=== PATIENT | female | born 1985 | race Caucasian/White ===

== ENCOUNTER 2020-06-15 04:21 | Day surgery (SDC) | payer OTHER ==
[2020-06-15] MEDS ORDERED: VANCOMYCIN 1,000 MG in DEXTROSE 5%-WATER - 250 ML IVPB ONE (06:59)
[2020-06-15] MEDS ORDERED: CEFAZOLIN 2 GM in DEXTROSE 5%-WATER - 100 ML IVPB ONE (06:59)
[2020-06-15] MEDS ORDERED: HEPARIN NA (PORCINE) 5,000 UNITS/ML 1ML VIAL ONE (07:18)
[2020-06-15] MEDS ORDERED: THROMBIN (BOVINE) 20,000 UNIT VIAL TP ONE (07:18)
[2020-06-15] MEDS ORDERED: fentaNYL CITRATE 250 MCG/5 ML VIAL ONE (07:24)
[2020-06-15] MEDS ORDERED: MIDAZOLAM HCL 2 MG/2 ML SINGLE DOSE VIAL ONE (07:24)
[2020-06-15] MEDS ORDERED: LIDOCAINE HCL/PF 2% SDV 5ML VIAL ONE (07:24)
[2020-06-15] MEDS ORDERED: DEXAMETHASONE SOD PHOSPHATE 4 MG/1 ML VIAL ONE (07:24)
[2020-06-15] MEDS ORDERED: ROCURONIUM BROMIDE 50 MG/5 ML SYRINGE ONE (07:24)
[2020-06-15] MEDS ORDERED: PROPOFOL 20 ML ONE ×7 (07:24→07:31)
[2020-06-15] MEDS ORDERED: ONDANSETRON 4 MG/2 ML VIAL ONE (07:24)
[2020-06-15 07:40] VITALS: BP 113/74; PULSE 90; TEMP 97
[2020-06-15] MEDS ORDERED: SEVOFLURANE 250 ML BTL ONE (07:43)
== END 2020-06-15 08:51 | disposition home or self-care (01) | DRG 552 ==
LOC: JASUSAT 04:21 → UNDOADMIN 04:26 → J2C 04:26 → EDSTATUS 08:00 → UNDODISIN 08:51 → JASUSAT 08:51
PROVIDERS: ATTEND Orthopaedic Surgery Orthopaedic Surgery of the Spine
PROC: 0SG00AJ Fusion of Lumbar Vertebral Joint with Interbody Fusion Device, Posterior Approach, Anterior Column, Open Approach (ICD-10-PCS; principal; 2020-06-15)
DX: M43.16 Spondylolisthesis, lumbar region (principal); M43.17 Spondylolisthesis, lumbosacral region; Z53.8 Procedure and treatment not carried out for other reasons
CPT/HCPCS: 36415; 84703; 86850; 86900; 86901; J1644

== ENCOUNTER 2020-12-21 04:21 | Inpatient (IN) | payer OTHER ==
[2020-12-17 17:28] VITALS: BMI 33.0
[2020-12-21] MEDS ORDERED: MIDAZOLAM HCL 2 MG/2 ML SINGLE DOSE VIAL ONE ×3 (07:06→16:14)
[2020-12-21] MEDS ORDERED: fentaNYL CITRATE 250 MCG/5 ML VIAL ONE (07:06)
[2020-12-21] MEDS ORDERED: GENTAMICIN SO4 80 MG/2 ML VIAL ONE (07:22)
[2020-12-21] MEDS ORDERED: BUPIVACAINE LIPOSOME/PF (EXPAREL) 266 MG/20 ML VIAL ONE (07:22)
[2020-12-21] MEDS ORDERED: BUPIVACAINE HCL 100 ML ONE (07:23)
[2020-12-21] MEDS ORDERED: THROMBIN (BOVINE) 5,000 UNIT VIAL TP ONE ×3 (07:23→11:45)
[2020-12-21] MEDS ORDERED: BUPIVACAINE LIPOSOME/PF (EXPAREL) 266 MG/20 ML VIAL NR ONE ×3 (08:54→14:54)
[2020-12-21] MEDS ORDERED: BUPIVACAINE HCL/PF 0.25% (2.5MG/ML) 10 ML VIAL IJ ONE ×3 (08:54→14:54)
[2020-12-21] MEDS ORDERED: LIDOCAINE 1%/EPI 1:100000 (20 ML MULTI DOSE VIAL) ONE (09:01)
[2020-12-21] MEDS ORDERED: THROMBIN (BOVINE) 20,000 UNIT VIAL TP ONE (11:19)
[2020-12-21] MEDS ORDERED: MIDAZOLAM HCL 2 MG/2 ML SINGLE DOSE VIAL IVPUSH ONE ×2 (14:38→16:18)
[2020-12-21] MEDS ORDERED: ACETAMINOPHEN INJECTION 100 ML IVPB ONE (15:02)
[2020-12-21] MEDS ORDERED: HYDROmorphone HCl 2 MG/ML VIAL SQ PRN (15:13)
[2020-12-21] MEDS ORDERED: oxyCODONE HCL 5 MG TABLET PO PRN (15:13)
[2020-12-21] MEDS ORDERED: ONDANSETRON 4 MG/2 ML VIAL IVPUSH PRN ×3 (15:13→16:16)
[2020-12-21] MEDS ORDERED: diazePAM CARPU-JECT 10 MG/2 ML DISP.SYRIN IVPUSH PRN (15:13)
[2020-12-21] MEDS ORDERED: LACTATED RINGERS SOLUTION 1,000 ML IV SCH ×2 (15:15→16:30)
[2020-12-21] MEDS ORDERED: PROMETHAZINE HCL 25 MG/1 ML VIAL IVPUSH PRN (16:16)
[2020-12-21] MEDS ORDERED: DEXAMETHASONE SOD PHOSPHATE 4 MG/1 ML VIAL IVPUSH PRN (16:16)
[2020-12-21] MEDS ORDERED: PROMETHAZINE HCL 25 MG/1 ML VIAL IVPB PRN (16:16)
[2020-12-21] MEDS ORDERED: HYDROmorphone *PCA* 10MG/50ML DISP.SYRIN PCA SCH (16:30)
[2020-12-21] MEDS ORDERED: HYDROmorphone *PCA* 10MG/50ML DISP.SYRIN ONE (16:44)
[2020-12-21] MEDS: HYDROmorphone *PCA* 10MG/50ML DISP.SYRIN PCA SCH (16:58)
[2020-12-21] MEDS ORDERED: LACTATED RINGERS SOLUTION 1000 ML INFUS.BAG IV ONE ×3 (19:01→21:48)
[2020-12-21] MEDS: ACETAMINOPHEN 1000 MG/100 ML VIAL (NON FORMULARY) IVPB SCH (19:03)
[2020-12-21 21:18] LABS: BLOOD UREA NITROGEN 13.9 mg/dL (7-18)
[2020-12-21 21:19] LABS: MAGNESIUM 1.8 mg/dL (1.8-2.4)
[2020-12-21 21:21] LABS: CREATININE 0.8 mg/dL (0.55-1.3); PHOSPHOROUS 3.8 mg/dL (2.5-4.9)
[2020-12-21 21:23] LABS: BILIRUBIN,TOTAL 0.9 mg/dL (0.2-1); TOT PROT 6.2 g/dl (6.4-8.2)
[2020-12-21 21:56] LABS: BASO % 0.3 % (0-2.0); HEMATOCRIT 36.1 % (32.4-45.2); HEMOGLOBIN 11.7 GM/dL (10.7-15.3); LYMPH % 12.8 % (8-40); MCH 25.9 pg (25.7-33.7); MCHC 32.3 g/dl (32.0-36.0); MEAN PLT VOLUME 9.6 fl (7.5-11.1); MONO % 7.2 % (3.8-10.2); NEUT % 79.7 % (42.8-82.8); PLATELET COUNT 184 10^3/uL (134-434); RBC 4.52 M/mm3 (3.60-5.2); RDW 16.9 % (11.6-15.6)
[2020-12-21] MEDS: VANCOMYCIN 1 GM in D5W (PRE-DOCKED) 1,000 MG/250 ML IVPB SCH (21:58)
[2020-12-21] MEDS ORDERED: PT OWN MED DRAWER 7, Y5N ONE (22:34)
[2020-12-22] MEDS ORDERED: ACETAMINOPHEN WITH CODEINE 300MG/30MG TABLET PO ONE (00:04)
[2020-12-22] MEDS: LACTATED RINGERS SOLUTION 1,000 ML/1,000 ML INFUS.BAG IV SCH (00:44)
[2020-12-22] MEDS: PYRIDOSTIGMINE BROMIDE 60 MG TABLET PO SCH ×3 (01:27→22:14)
[2020-12-22] MEDS ORDERED: oxyCODONE HCL 10 MG SUSTAINED ACTING TABLET PO PRN (04:09)
[2020-12-22 06:44] LABS: HEMATOCRIT 33.7 % (32.4-45.2); HEMOGLOBIN 10.9 GM/dL (10.7-15.3); MCH 25.9 pg (25.7-33.7); MCHC 32.3 g/dl (32.0-36.0); MEAN CELL VOLUME 80.2 fl (80-96); MEAN PLT VOLUME 9.7 fl (7.5-11.1); PLATELET COUNT 181 10^3/uL (134-434); WHITE BLOOD COUNT 11.4 K/mm3 (4.0-10.0)
[2020-12-22 07:02] LABS: BLOOD UREA NITROGEN 9.1 mg/dL (7-18); CALCIUM 7.7 mg/dL (8.5-10.1)
[2020-12-22 07:06] LABS: CREATININE 0.7 mg/dL (0.55-1.3)
[2020-12-22] MEDS ORDERED: PT OWN MED DRAWER 7, Y5N ONE ×2 (09:47→21:15)
[2020-12-22] MEDS: PYRIDOSTIGMINE BROMIDE 180 MG PO SCH (10:11)
[2020-12-22] MEDS: VANCOMYCIN 1 GM in D5W (PRE-DOCKED) 1,000 MG/250 ML IVPB SCH ×2 (10:12→19:06)
[2020-12-22] MEDS: ACETAMINOPHEN 1000 MG/100 ML VIAL (NON FORMULARY) IVPB SCH ×4 (10:14→19:08)
[2020-12-22] MEDS: oxyCODONE HCL 5 MG TABLET PO PRN ×2 (11:09→22:15)
[2020-12-22] MEDS ORDERED: SENNOSIDES 8.6MG TABLET (FP) PO ONE (16:07)
[2020-12-22] MEDS: HYDROmorphone *PCA* 10MG/50ML DISP.SYRIN PCA SCH ×3 (17:00→21:55)
[2020-12-22] MEDS ORDERED: PCA PUMP NR ONE ×2 (18:57→21:59)
[2020-12-22] MEDS: ACETAMINOPHEN 1000 MG/100 ML VIAL (NON FORMULARY) IVPB PRN (21:18)
[2020-12-22] MEDS ORDERED: MAG HYDROX/AL HYDROX/SIMETH -MYLANTA- ORAL SUSPENSION PO PRN (22:16)
[2020-12-23] MEDS: LACTATED RINGERS SOLUTION 1,000 ML/1,000 ML INFUS.BAG IV SCH ×2 (01:21→23:27)
[2020-12-23] MEDS: oxyCODONE HCL 5 MG TABLET PO PRN (06:33)
[2020-12-23] MEDS ORDERED: PCA PUMP NR ONE ×3 (06:43→19:13)
[2020-12-23] MEDS ORDERED: PT OWN MED DRAWER 7, Y5N ONE ×4 (09:09→21:44)
[2020-12-23] MEDS: PYRIDOSTIGMINE BROMIDE 180 MG PO SCH (09:13)
[2020-12-23] MEDS: ACETAMINOPHEN 1000 MG/100 ML VIAL (NON FORMULARY) IVPB PRN ×2 (09:38→19:17)
[2020-12-23 11:47] LABS: BASO % 0.3 % (0-2.0); EOS % 0.2 % (0-4.5); HEMOGLOBIN 8.8 GM/dL (10.7-15.3); LYMPH % 12.1 % (8-40); MCH 25.9 pg (25.7-33.7); MCHC 32.5 g/dl (32.0-36.0); MEAN CELL VOLUME 79.8 fl (80-96); MONO % 7.1 % (3.8-10.2); NEUT % 80.3 % (42.8-82.8); PLATELET COUNT 164 10^3/uL (134-434); RBC 3.38 M/mm3 (3.60-5.2); RDW 16.1 % (11.6-15.6); WHITE BLOOD COUNT 13.8 K/mm3 (4.0-10.0)
[2020-12-23 12:16] LABS: BLOOD UREA NITROGEN 5.9 mg/dL (7-18); CALCIUM 7.4 mg/dL (8.5-10.1)
[2020-12-23 12:17] LABS: MAGNESIUM 1.8 mg/dL (1.8-2.4)
[2020-12-23 12:20] LABS: CREATININE 0.7 mg/dL (0.55-1.3); PHOSPHOROUS 2.8 mg/dL (2.5-4.9)
[2020-12-23] MEDS: PYRIDOSTIGMINE BROMIDE 60 MG TABLET PO SCH (21:23)
[2020-12-24] MEDS ORDERED: MAG HYDROX/AL HYDROX/SIMETH 30 ML UNIT-DOSE CUP PO PRN (00:50)
[2020-12-24] MEDS ORDERED: ACETAMINOPHEN 1000 MG/100 ML VIAL (NON FORMULARY) IVPB ONE ×2 (03:56→12:40)
[2020-12-24] MEDS: LACTATED RINGERS SOLUTION 1,000 ML/1,000 ML INFUS.BAG IV SCH ×2 (05:12→20:16)
[2020-12-24] MEDS: HYDROmorphone *PCA* 10MG/50ML DISP.SYRIN PCA SCH ×2 (05:13→21:30)
[2020-12-24 06:38] LABS: CALCIUM 7.1 mg/dL (8.5-10.1)
[2020-12-24 06:39] LABS: BLOOD UREA NITROGEN 6.3 mg/dL (7-18); MAGNESIUM 1.7 mg/dL (1.8-2.4)
[2020-12-24 06:42] LABS: BASO % 0.3 % (0-2.0); CREATININE 0.6 mg/dL (0.55-1.3); EOS % 0.7 % (0-4.5); HEMATOCRIT 25.8 % (32.4-45.2); HEMOGLOBIN 8.6 GM/dL (10.7-15.3); LYMPH % 16.3 % (8-40); MCH 26.6 pg (25.7-33.7); MCHC 33.3 g/dl (32.0-36.0); MEAN CELL VOLUME 79.8 fl (80-96); MEAN PLT VOLUME 9.3 fl (7.5-11.1); MONO % 5.9 % (3.8-10.2); NEUT % 76.8 % (42.8-82.8); PHOSPHOROUS 2.6 mg/dL (2.5-4.9); PLATELET COUNT 161 10^3/uL (134-434); RBC 3.23 M/mm3 (3.60-5.2); RDW 16.3 % (11.6-15.6); WHITE BLOOD COUNT 9.6 K/mm3 (4.0-10.0)
[2020-12-24] MEDS ORDERED: POTASSIUM CHLORIDE TABS 20 MEQ TABLET.ER (FP) PO ONE (08:26)
[2020-12-24] MEDS ORDERED: MAGNESIUM OXIDE 400 MG TABLET (FP) PO ONE (08:27)
[2020-12-24] MEDS ORDERED: PT OWN MED DRAWER 7, Y5N ONE ×2 (08:38→21:41)
[2020-12-24] MEDS: PYRIDOSTIGMINE BROMIDE 180 MG PO SCH (09:00)
[2020-12-24] MEDS: ACETAMINOPHEN 325 MG TABLET (FP) PO PRN (20:23)
[2020-12-24] MEDS: PYRIDOSTIGMINE BROMIDE 60 MG TABLET PO SCH (22:29)
[2020-12-25] MEDS: LACTATED RINGERS SOLUTION 1,000 ML/1,000 ML INFUS.BAG IV SCH ×2 (00:32→15:58)
[2020-12-25] MEDS: ACETAMINOPHEN 325 MG TABLET (FP) PO PRN ×2 (05:14→23:41)
[2020-12-25 07:27] LABS: BASO % 0.4 % (0-2.0); EOS % 2.9 % (0-4.5); HEMATOCRIT 23.3 % (32.4-45.2); HEMOGLOBIN 7.8 GM/dL (10.7-15.3); LYMPH % 19.4 % (8-40); MCH 26.4 pg (25.7-33.7); MCHC 33.4 g/dl (32.0-36.0); MEAN CELL VOLUME 79.1 fl (80-96); MEAN PLT VOLUME 8.7 fl (7.5-11.1); MONO % 6.7 % (3.8-10.2); NEUT % 70.6 % (42.8-82.8); PLATELET COUNT 189 10^3/uL (134-434); RBC 2.94 M/mm3 (3.60-5.2); RDW 16.3 % (11.6-15.6); WHITE BLOOD COUNT 7.4 K/mm3 (4.0-10.0)
[2020-12-25 07:47] LABS: BLOOD UREA NITROGEN 6.8 mg/dL (7-18); CALCIUM 7.3 mg/dL (8.5-10.1); MAGNESIUM 1.7 mg/dL (1.8-2.4)
[2020-12-25 07:51] LABS: CREATININE 0.6 mg/dL (0.55-1.3)
[2020-12-25 07:53] LABS: PHOSPHOROUS 2.8 mg/dL (2.5-4.9)
[2020-12-25] MEDS ORDERED: SENNOSIDES 8.6MG TABLET (FP) PO ONE (09:18)
[2020-12-25] MEDS ORDERED: PT OWN MED DRAWER 7, Y5N ONE (09:28)
[2020-12-25] MEDS: PYRIDOSTIGMINE BROMIDE 180 MG PO SCH (09:33)
[2020-12-25] MEDS ORDERED: SENNOSIDES 8.6MG TABLET (FP) PO PRN (10:13)
[2020-12-25] MEDS ORDERED: PCA PUMP NR ONE ×2 (12:38→17:50)
[2020-12-25] MEDS: HYDROmorphone *PCA* 10MG/50ML DISP.SYRIN PCA SCH ×2 (12:39→21:00)
[2020-12-25] MEDS: KETOROLAC TROMETHAMINE 15 MG/ML VIAL IVPUSH ONE ×2 (15:31→18:42)
[2020-12-25] MEDS: PYRIDOSTIGMINE BROMIDE 60 MG TABLET PO SCH (22:46)
[2020-12-25] MEDS ORDERED: ONDANSETRON 4 MG/2 ML VIAL IVPUSH PRN (22:55)
[2020-12-25] MEDS ORDERED: DEXAMETHASONE SOD PHOSPHATE 4 MG/1 ML VIAL IVPUSH PRN (22:55)
[2020-12-25] MEDS ORDERED: MAG HYDROX/AL HYDROX/SIMETH 30 ML UNIT-DOSE CUP PO PRN (22:55)
[2020-12-25] MEDS ORDERED: PROMETHAZINE HCL 25 MG/1 ML VIAL IVPB PRN (22:55)
[2020-12-26] MEDS ORDERED: PCA PUMP NR ONE (00:28)
[2020-12-26] MEDS: HYDROmorphone *PCA* 10MG/50ML DISP.SYRIN PCA SCH ×2 (04:08→05:37)
[2020-12-26] MEDS: LACTATED RINGERS SOLUTION 1,000 ML/1,000 ML INFUS.BAG IV SCH (04:49)
[2020-12-26] MEDS: ACETAMINOPHEN 1000 MG/100 ML VIAL (NON FORMULARY) IVPB PRN ×2 (08:11→17:33)
[2020-12-26 09:12] LABS: HEMATOCRIT 25.6 % (32.4-45.2); HEMOGLOBIN 8.3 GM/dL (10.7-15.3); MCH 25.9 pg (25.7-33.7); MCHC 32.4 g/dl (32.0-36.0); MEAN CELL VOLUME 79.8 fl (80-96); MEAN PLT VOLUME 8.4 fl (7.5-11.1); PLATELET COUNT 249 10^3/uL (134-434); RDW 16.9 % (11.6-15.6); WHITE BLOOD COUNT 5.7 K/mm3 (4.0-10.0)
[2020-12-26] MEDS ORDERED: PT OWN MED DRAWER 7, Y5N ONE ×3 (09:34→20:46)
[2020-12-26] MEDS: PYRIDOSTIGMINE BROMIDE 180 MG PO SCH (09:35)
[2020-12-26 09:39] LABS: BLOOD UREA NITROGEN 7.2 mg/dL (7-18)
[2020-12-26 09:42] LABS: CREATININE 0.6 mg/dL (0.55-1.3)
[2020-12-26 09:45] LABS: CALCIUM 7.9 mg/dL (8.5-10.1)
[2020-12-26] MEDS: PYRIDOSTIGMINE BROMIDE 60 MG TABLET PO SCH (21:18)
[2020-12-27] MEDS: ACETAMINOPHEN 325 MG TABLET (FP) PO PRN (05:20)
[2020-12-27] MEDS ORDERED: PCA PUMP NR ONE (06:23)
[2020-12-27 08:02] LABS: BASO % 0.4 % (0-2.0); EOS % 3.4 % (0-4.5); HEMATOCRIT 25.8 % (32.4-45.2); HEMOGLOBIN 8.3 GM/dL (10.7-15.3); LYMPH % 26.1 % (8-40); MCH 25.6 pg (25.7-33.7); MCHC 32.1 g/dl (32.0-36.0); MEAN CELL VOLUME 79.8 fl (80-96); MEAN PLT VOLUME 8.3 fl (7.5-11.1); MONO % 8.8 % (3.8-10.2); NEUT % 61.3 % (42.8-82.8); PLATELET COUNT 283 10^3/uL (134-434); RBC 3.24 M/mm3 (3.60-5.2); RDW 17.1 % (11.6-15.6); WHITE BLOOD COUNT 6.7 K/mm3 (4.0-10.0)
[2020-12-27 08:28] LABS: BLOOD UREA NITROGEN 7.3 mg/dL (7-18); CALCIUM 8.2 mg/dL (8.5-10.1)
[2020-12-27 08:31] LABS: CREATININE 0.6 mg/dL (0.55-1.3)
[2020-12-27 08:33] LABS: BILIRUBIN,TOTAL 0.3 mg/dL (0.2-1); TOT PROT 5.6 g/dl (6.4-8.2)
[2020-12-27 08:36] LABS: ALBUMIN 2.2 g/dl (3.4-5.0)
[2020-12-27] MEDS ORDERED: PT OWN MED DRAWER 7, Y5N ONE ×3 (09:55→21:04)
[2020-12-27] MEDS: PYRIDOSTIGMINE BROMIDE 180 MG PO SCH (09:56)
[2020-12-27] MEDS: LACTATED RINGERS SOLUTION 1,000 ML/1,000 ML INFUS.BAG IV SCH ×2 (09:57→23:11)
[2020-12-27] MEDS: SENNOSIDES 8.6MG TABLET (FP) PO PRN (13:31)
[2020-12-27] MEDS: ACETAMINOPHEN 1000 MG/100 ML VIAL (NON FORMULARY) IVPB PRN ×2 (13:33→21:10)
[2020-12-27] MEDS: HYDROmorphone *PCA* 10MG/50ML DISP.SYRIN PCA SCH ×2 (16:42→22:55)
[2020-12-27] MEDS: PYRIDOSTIGMINE BROMIDE 60 MG TABLET PO SCH (21:11)
[2020-12-28 08:16] LABS: HEMOGLOBIN 8.9 GM/dL (10.7-15.3); MCH 26.3 pg (25.7-33.7); MEAN CELL VOLUME 79.5 fl (80-96); PLATELET COUNT 324 10^3/uL (134-434); RDW 17.1 % (11.6-15.6); WHITE BLOOD COUNT 6.7 K/mm3 (4.0-10.0)
[2020-12-28 08:37] LABS: BLOOD UREA NITROGEN 9.2 mg/dL (7-18)
[2020-12-28 08:40] LABS: CREATININE 0.6 mg/dL (0.55-1.3)
[2020-12-28] MEDS: LACTATED RINGERS SOLUTION 1,000 ML/1,000 ML INFUS.BAG IV SCH ×3 (10:05→22:00)
[2020-12-28] MEDS ORDERED: PT OWN MED DRAWER 7, Y5N ONE ×2 (10:09→20:29)
[2020-12-28] MEDS: ACETAMINOPHEN 1000 MG/100 ML VIAL (NON FORMULARY) IVPB PRN ×2 (10:14→20:36)
[2020-12-28] MEDS: PYRIDOSTIGMINE BROMIDE 180 MG PO SCH (10:15)
[2020-12-28] MEDS ORDERED: PCA PUMP NR ONE (17:12)
[2020-12-28] MEDS: PYRIDOSTIGMINE BROMIDE 60 MG TABLET PO SCH ×2 (21:18→21:27)
[2020-12-29] MEDS ORDERED: oxyCODONE HCL 5 MG TABLET PO PRN (01:42)
[2020-12-29] MEDS: oxyCODONE HCL 5 MG TABLET PO PRN ×5 (01:46→20:56)
[2020-12-29] MEDS: ACETAMINOPHEN 1000 MG/100 ML VIAL (NON FORMULARY) IVPB PRN (05:18)
[2020-12-29 07:33] LABS: BASO % 0.6 % (0-2.0); EOS % 4.4 % (0-4.5); HEMATOCRIT 26.7 % (32.4-45.2); HEMOGLOBIN 8.8 GM/dL (10.7-15.3); LYMPH % 27.6 % (8-40); MCH 25.9 pg (25.7-33.7); MCHC 32.8 g/dl (32.0-36.0); MEAN CELL VOLUME 78.8 fl (80-96); MEAN PLT VOLUME 7.9 fl (7.5-11.1); MONO % 10.1 % (3.8-10.2); NEUT % 57.3 % (42.8-82.8); PLATELET COUNT 387 10^3/uL (134-434); RBC 3.39 M/mm3 (3.60-5.2); RDW 16.7 % (11.6-15.6); WHITE BLOOD COUNT 7.1 K/mm3 (4.0-10.0)
[2020-12-29 07:59] LABS: CALCIUM 8.2 mg/dL (8.5-10.1)
[2020-12-29 08:00] LABS: ALBUMIN 2.3 g/dl (3.4-5.0); BLOOD UREA NITROGEN 7.8 mg/dL (7-18); MAGNESIUM 2.2 mg/dL (1.8-2.4)
[2020-12-29 08:01] LABS: BILIRUBIN,TOTAL 0.2 mg/dL (0.2-1)
[2020-12-29 08:03] LABS: CREATININE 0.6 mg/dL (0.55-1.3); PHOSPHOROUS 4.3 mg/dL (2.5-4.9)
[2020-12-29 09:29] VITALS: TEMP 98.6
[2020-12-29] MEDS: PYRIDOSTIGMINE BROMIDE 180 MG PO SCH (09:35)
[2020-12-29] MEDS: SENNOSIDES 8.6MG TABLET (FP) PO PRN (09:36)
[2020-12-29] MEDS ORDERED: DOCUSATE SODIUM 100 MG CAPSULE (FP) PO SCH (10:00)
[2020-12-29] MEDS ORDERED: CYCLOBENZAPRINE HCL 10 MG TABLET (FP) PO SCH (10:00)
[2020-12-29] MEDS ORDERED: SENNOSIDES 8.6MG TABLET (FP) PO SCH (10:00)
[2020-12-29 16:46] VITALS: BP 110/70; PULSE 80
[2020-12-29] MEDS: LACTATED RINGERS SOLUTION 1,000 ML/1,000 ML INFUS.BAG IV SCH (16:46)
== END 2020-12-29 21:00 | DRG 455 ==
LOC: J2C 04:21 → JICU 17:43 → J8W 12-25 22:45
PROVIDERS: ADMIT Orthopaedic Surgery Orthopaedic Surgery of the Spine; ATTEND Internal Medicine
PROC: 0SG0071 Fusion of Lumbar Vertebral Joint with Autologous Tissue Substitute, Posterior Approach, Posterior Column, Open Approach (ICD-10-PCS; 2020-12-21)
PROC: 0SG30AJ Fusion of Lumbosacral Joint with Interbody Fusion Device, Posterior Approach, Anterior Column, Open Approach (ICD-10-PCS; 2020-12-21)
PROC: 0SG3071 Fusion of Lumbosacral Joint with Autologous Tissue Substitute, Posterior Approach, Posterior Column, Open Approach (ICD-10-PCS; 2020-12-21)
PROC: 01NB0ZZ Release Lumbar Nerve, Open Approach (ICD-10-PCS; 2020-12-21)
PROC: 0JX70ZB Transfer Back Subcutaneous Tissue and Fascia with Skin and Subcutaneous Tissue, Open Approach (ICD-10-PCS; 2020-12-21)
PROC: 0QB00ZZ Excision of Lumbar Vertebra, Open Approach (ICD-10-PCS; 2020-12-21)
PROC: B01BZZZ Fluoroscopy of Spinal Cord (ICD-10-PCS; 2020-12-21)
PROC: 07DR0ZZ Extraction of Iliac Bone Marrow, Open Approach (ICD-10-PCS; 2020-12-21)
PROC: 30233N1 Transfusion of Nonautologous Red Blood Cells into Peripheral Vein, Percutaneous Approach (ICD-10-PCS; 2020-12-21)
PROC: 0SG00AJ Fusion of Lumbar Vertebral Joint with Interbody Fusion Device, Posterior Approach, Anterior Column, Open Approach (ICD-10-PCS; principal; 2020-12-21 11:00)
DX: M48.07 Spinal stenosis, lumbosacral region (principal); M47.27 Other spondylosis with radiculopathy, lumbosacral region; G70.00 Myasthenia gravis without (acute) exacerbation; E66.9 Obesity, unspecified; Z68.33 Body mass index [BMI] 33.0-33.9, adult; E83.42 Hypomagnesemia; E87.6 Hypokalemia; M43.07 Spondylolysis, lumbosacral region; D64.9 Anemia, unspecified
CPT/HCPCS: 36415; 36430; 36511; 72100-TC-FY; 72131-TC; 76000-TC-FY; 80048; 80053; 83735; 84100; 84703; 85025; 85027; 86850; 86900; 86901; 86922; 93970-TC; 94760; 97116-GP; J0131; P9038; P9058

== ENCOUNTER 2021-02-06 16:13 | Emergency (ER) | payer OTHER ==
[2021-02-06 16:49] VITALS: TEMP 97.8; BMI 31.4
[2021-02-06] MEDS ORDERED: SODIUM CHLORIDE 0.9% 500 ML INFUS.BAG IV ONE (19:34)
[2021-02-06 20:47] LABS: CHLORIDE 108 mmol/L (98-107); SODIUM 137 mmol/L (136-145)
[2021-02-06 20:48] LABS: CALCIUM 9.1 mg/dL (8.5-10.1)
[2021-02-06 20:49] LABS: ALBUMIN 3.7 g/dl (3.4-5.0); BLOOD UREA NITROGEN 11.8 mg/dL (7-18); CO2 22 mmol/L (21-32); GLUCOSE,RANDOM 101 mg/dL (74-106); LIPASE 138 U/L (73-393); MAGNESIUM 2.1 mg/dL (1.8-2.4)
[2021-02-06 20:52] LABS: CREATININE 0.9 mg/dL (0.55-1.3); SGOT/AST 52 U/L (15-37); SGPT/ALT 28 U/L (13-61)
[2021-02-06 20:54] LABS: BILIRUBIN,TOTAL 0.5 mg/dL (0.2-1); TOT PROT 8.4 g/dl (6.4-8.2)
[2021-02-06 20:55] LABS: ALK PHOS 75 U/L (45-117)
[2021-02-06 21:01] LABS: ANION GAP 7 MMOL/L (8-16)
[2021-02-06 21:04] LABS: EPI CELLS 6 /uL (0-25.1); HYALINE CASTS 3 /uL (0-3.1); PH,URINE 5.5 (5.0-8.0); URINE APPEARANCE CLEAR; URINE BACTERIA 70 /uL (0-1359); URINE BILIRUBIN NEGATIVE (NEGATIVE); URINE COLOR YELLOW; URINE GLUCOSE (UA) NEGATIVE (NEGATIVE); URINE KETONE TRACE (NEGATIVE); URINE LEUK ESTERASE NEGATIVE (NEGATIVE); URINE NITRITE NEGATIVE (NEGATIVE); URINE PROTEIN 2+ (NEGATIVE); URINE RBC 269 /uL (0-23.9); URINE UROBILINOGEN 0.2 mg/dL (0.2-1.0); URINE WBC 16 /uL (0-25.8)
[2021-02-06 21:26] LABS: BASO % 0.4 % (0-2.0); EOS % 1.3 % (0-4.5); HEMATOCRIT 35.7 % (32.4-45.2); HEMOGLOBIN 11.7 GM/dL (10.7-15.3); LYMPH % 25.2 % (8-40); MCH 24.7 pg (25.7-33.7); MCHC 32.7 g/dl (32.0-36.0); MEAN CELL VOLUME 75.6 fl (80-96); MEAN PLT VOLUME 9.8 fl (7.5-11.1); MONO % 5.7 % (3.8-10.2); NEUT % 67.4 % (42.8-82.8); PLATELET COUNT 291 10^3/uL (134-434); RBC 4.72 M/mm3 (3.60-5.2); RDW 15.6 % (11.6-15.6); WHITE BLOOD COUNT 8.2 K/mm3 (4.0-10.0)
[2021-02-06 21:33] LABS: INR 1.09 (0.83-1.09); PROTHROMBIN TIME (PATIENT) 13.1 SEC (9.7-13.0)
[2021-02-06 21:36] LABS: ACTIVATED PTT 34.2 SECONDS (25.2-36.5)
[2021-02-06 21:48] LABS: BLOOD UREA NITROGEN 11.6 mg/dL (7-18); CALCIUM 9.3 mg/dL (8.5-10.1)
[2021-02-06 21:51] LABS: CREATININE 0.9 mg/dL (0.55-1.3)
[2021-02-06 21:52] LABS: BILIRUBIN,TOTAL 0.3 mg/dL (0.2-1); TOT PROT 8.5 g/dl (6.4-8.2)
[2021-02-07 01:11] VITALS: BP 113/61; PULSE 68
== END 2021-02-07 01:20 | disposition home or self-care (01) ==
LOC: JER 16:13
DX: R10.84 Generalized abdominal pain (principal); Z48.00 Encounter for change or removal of nonsurgical wound dressing
CPT/HCPCS: 36415; 76705-TC; 76775-TC; 80053; 81003; 83690; 83735; 85025; 85610; 85730; 86850; 86870; 86900; 86901; 86902; 87086; 99285-25

== ENCOUNTER 2021-05-11 18:07 | Emergency (ER) | payer OTHER ==
[2021-05-11 18:40] VITALS: TEMP 97.8; BMI 31.1
[2021-05-11] MEDS ORDERED: FAMOTIDINE 20 MG TABLET PO ONE (20:50)
[2021-05-11] MEDS ORDERED: ONDANSETRON *ODT* 4 MG TABLET SL ONE (20:50)
[2021-05-11] MEDS ORDERED: MAG HYDROX/AL HYDROX/SIMETH 30 ML UNIT-DOSE CUP PO ONE (20:50)
[2021-05-11 20:59] LABS: EPI CELLS >36 /uL (0-25.1); HYALINE CASTS 34 /uL (0-3.1); PH,URINE 5.5 (5.0-8.0); URINE APPEARANCE CLOUDY; URINE BACTERIA 101 /uL (0-1359); URINE BILIRUBIN 1+ (NEGATIVE); URINE COLOR DK YELLOW; URINE GLUCOSE (UA) NEGATIVE (NEGATIVE); URINE KETONE TRACE (NEGATIVE); URINE LEUK ESTERASE 1+ (NEGATIVE); URINE NITRITE NEGATIVE (NEGATIVE); URINE PROTEIN 3+ (NEGATIVE); URINE RBC 554 /uL (0-23.9); URINE WBC 169 /uL (0-25.8)
[2021-05-11 23:42] LABS: EPI CELLS 16 /uL (0-25.1); HYALINE CASTS 1 /uL (0-3.1); PH,URINE 6.5 (5.0-8.0); URINE APPEARANCE CLEAR; URINE BACTERIA 7 /uL (0-1359); URINE BILIRUBIN NEGATIVE (NEGATIVE); URINE COLOR YELLOW; URINE GLUCOSE (UA) NEGATIVE (NEGATIVE); URINE KETONE TRACE (NEGATIVE); URINE LEUK ESTERASE NEGATIVE (NEGATIVE); URINE NITRITE NEGATIVE (NEGATIVE); URINE PROTEIN 1+ (NEGATIVE); URINE RBC 169 /uL (0-23.9); URINE UROBILINOGEN 0.2 mg/dL (0.2-1.0); URINE WBC 19 /uL (0-25.8)
[2021-05-12] MEDS ORDERED: SODIUM CHLORIDE 1,000 ML IV STA (00:51)
[2021-05-12 02:12] VITALS: BP 117/84; PULSE 77
== END 2021-05-12 00:31 | disposition home or self-care (01) ==
LOC: JER 18:07
PROC: 3E0337Z Introduction of Electrolytic and Water Balance Substance into Peripheral Vein, Percutaneous Approach (ICD-10-PCS; principal; 2021-05-11)
DX: E86.0 Dehydration (principal)
CPT/HCPCS: 81003; 84703; 87086; 99284-25